=== PATIENT | female | born 1950 | race Caucasian/White ===

== ENCOUNTER → 2016-07-21 | Outpatient (CLI) | payer MEDICARE, MEDICAID | END | disposition home or self-care (01) | LOC: MAMMO 12:09 | DX: Z12.31 Encounter for screening mammogram for malignant neoplasm of breast (principal) ==

== ENCOUNTER → 2017-04-09 | Day surgery (SDC) | payer MEDICARE, MEDICAID ==
[~2017-04-09] VITALS: Ht 154.9 cm; Wt 83.9 kg
[~2017-04-09] MED LIST: 'CLONIDINE0.1 MG PO; ASPIRIN81 M1 PO; COZAAR100 MG PO; LANTUS SOL100 UNIT/1 SQ; Lopressor25 MG PO; METFORMIN1000 MG PO; NORVASC5 MG PO
--- NOTE | ~2017-04-09 | PROC NOTE ---
[place], [place] PROCEDURE NOTE NAME: JOANN CASEY UNIT #: [id number] ROOM: DOCTOR: JUAN LIUS OSORIO MD BIRTHDATE: [birth year] DOS: 04/09/2017 PREOPERATIVE DIAGNOSES: History of diarrhea and intermittent lower gastrointestinal bleed. POSTOPERATIVE DIAGNOSIS: Rectal polyps x 1 (10 cm). PROCEDURE: Colonoscopy with polypectomy. SURGEON: Juan Luis Osorio MD GASTROINTESTINAL TECHNICIAN: [id number]. ANESTHESIA: MAC. INDICATIONS: This is a 66-year-old lady with a history of chronic diarrhea and intermittent lower GI bleeding, who is here for the above-mentioned procedure. The procedure and its complications were explained to the patient in detail preoperatively. Complications that were discussed included, but were not limited to bleeding, missed lesions and colon perforation. She agreed to proceed. DESCRIPTION OF PROCEDURE: After identifying the patient, the patient was brought to the operating suite and laid in the left lateral position. After IV sedation was administered, a timeout procedure was called and a digital rectal exam was performed. This was within normal limits. An adult colonoscope was now introduced into the anal canal and advanced sequentially into the rectum, sigmoid colon, descending colon, transverse colon and ascending colon up to the cecum. On reaching the cecum, the scope was withdrawn. Total withdrawal time was approximately 7 minutes. At approximately 10 cm from the anal verge ____ there was found to be a single polyp, which was removed piecemeal with the help of a biopsy forceps and sent for histopathological diagnosis. After hemostasis was confirmed, the scope was withdrawn and the patient was taken to the recovery room in stable fashion. There were no complications. Dr. Juan Luis Osorio, the attending surgeon, was present throughout the operating case. Based on these findings, the patient is recommended another colonoscopy in 3 years. These findings will be discussed with the patient in the postoperative recovery room. [place], [place] PROCEDURE NOTE NAME: JOANN CASEY UNIT #: [id number] ROOM: DOCTOR: JUAN LUIS OSORIO MD BIRTHDATE: [birth year] Juan Luis Osorio MD CM:PROCNOTE:PROCEDURE NOTE [id number] JUAN LUIS OSORIO MD
[2017-04-09 08:13] VITALS: BP 205/76
[2017-04-09 09:28] VITALS: BP 133/55
[2017-04-09 09:43] VITALS: BP 145/68
[2017-04-09 09:58] VITALS: BP 161/64
== END | disposition home or self-care (01) ==
LOC: SDC 04-07 12:30
DX: D12.8 Benign neoplasm of rectum (principal); K52.9 Noninfective gastroenteritis and colitis, unspecified; I10 Essential (primary) hypertension; E11.9 Type 2 diabetes mellitus without complications; I50.9 Heart failure, unspecified; Z90.710 Acquired absence of both cervix and uterus; Z98.51 Tubal ligation status; Z98.890 Other specified postprocedural states; Z88.8 Allergy status to other drugs, medicaments and biological substances; Z83.3 Family history of diabetes mellitus

== ENCOUNTER 2017-08-21 13:04 | Inpatient (IN) | payer MEDICARE, MEDICAID ==
[~2017-08-21] VITALS: Ht 154.9 cm; Wt 81.8 kg
--- NOTE | ~2017-08-21 | PR ---
[place], [place] PROGRESS NOTE NAME: JOANN CASEY UNIT #: [id number] ROOM: 519 DOCTOR: TIANA RODAS MD BIRTHDATE: [birth year] DOS: 08/23/2017 SUBJECTIVE: The patient was seen in the Cardiology Department today, 08/23/2017, just prior to her stress test. She is a 67-year-old woman with multiple risk factors for coronary disease including diabetes, hypertension, hyperlipidemia, who is intolerant of STATINS. She presented to the hospital on this occasion with left wrist and arm pain, radiating into her neck and shoulder and then into her chest. The pain was described as an atypical stabbing and burning discomfort. However, given her risk factors, it was felt that coronary artery disease should be evaluated. Thus far, her troponin levels are normal. PHYSICAL EXAMINATION: VITAL SIGNS: Today her pulse is 76 and regular, blood pressure is 157/67. She is afebrile. She has an oxygen saturation on room air of 96% and a body mass index of 34.1. HEENT: Normocephalic and atraumatic. Extraocular muscles are intact. Sclerae are clear. Pupils equal, round and react to light. The oral mucosa is moist. Tongue is midline. NECK: Supple. She has no jugular distention. Carotids are full without bruits. LUNGS: Respirations are unlabored. Her chest is clear to auscultation and percussion. She has no presacral edema or chest wall tenderness. HEART: Has a regular rhythm with a soft S4 gallop. ABDOMEN: Obese, but otherwise benign. EXTREMITIES: Showed no edema. LABORATORY DATA: Her resting electrocardiogram showed sinus rhythm with nonspecific ST changes and poor precordial R-wave progression. IMPRESSION: 1. Atypical chest discomfort. 2. Multiple coronary risk factors including hypertension, diabetes, hyperlipidemia and a family history of heart disease. PLAN: We will proceed with a pharmacologic stress test. Further recommendations will depend upon the results of the stress test. We thank the hospitalist physicians for asking our advice regarding her care. [place], [place] PROGRESS NOTE NAME: JOANN CASEY UNIT #: [id number] ROOM: 519 DOCTOR: TIANA RODAS MD BIRTHDATE: [birth year] TIANA RODAS MD CM:PNTRANS [id number] TIANA RODAS MD 08/23/17 1128 [id number]
[2017-08-21 13:08] VITALS: BP 148/68
[2017-08-21] MEDS ORDERED: HYZAAR 100-12.1 EACH PO (13:28)
[2017-08-21 13:29] LABS: BASO % 0.4 % (0.0-1.0); EOS # 0.3 10*3/uL (0.0-0.4); EOS % 2.5 % (1.0-4.0); HEMATOCRIT 41.5 % (37.0-47.0); HEMOGLOBIN 14.8 g/dl (12.0-16.0); LYMPH # 2.7 10*3/uL (1.3-4.4); LYMPH % 24.6 % (27.0-41.0); MEAN CELL VOLUME 84.3 fl (81.0-99.0); MEAN CORPUSCULAR HGB 30.1 pg (27.0-31.0); MEAN CORPUSCULAR HGB CONC 35.7 g/dl (33.0-37.0); MEAN PLATELET VOLUME 9.6 fl (9.6-12.3); MONO % 9.1 % (3.0-9.0); NEUT % 63.1 % (47.0-73.0); PLATELET COUNT AUTOMATED 301 10*3/uL (130-400); RED BLOOD COUNT 4.92 10*6/uL (4.10-5.10); RED CELL DISTRI WIDTH 12.7 % (0-14.5); WHITE BLOOD COUNT 11.2 10*3/uL (4.8-10.8)
[2017-08-21 13:39] LABS: ALBUMIN 4.2 gm/dl (3.1-4.5); ALKALINE PHOSPHATASE 80 U/L (45-117); BUN 12 mg/dl (7-24); CHLORIDE 95 mmol/L (98-107); CREATININE 0.91 mg/dL (0.55-1.02); POTASSIUM 4.3 mmol/L (3.5-5.1); SGOT/AST 26 IU/L (3-35); SGPT/ALT 41 U/L (12-78); SODIUM 130 mmol/L (136-145); TOTAL PROTEIN 8.2 gm/dL (6.4-8.2)
[2017-08-21 13:40] LABS: TROPONIN I < 0.015 ng/ml (<0.045)
[2017-08-21 13:48] LABS: ACT PARTIAL THROMBO TIME 25.5 SECONDS (20.8-31.5)
[2017-08-21 13:53] VITALS: BP 151/62
[2017-08-21] MEDS ORDERED: LOSARTAN-HCTZ1 EAC1 PO ×2 (14:37→14:53)
[2017-08-21] MEDS ORDERED: COZAAR100 MG PO (14:39)
[2017-08-21 14:40] VITALS: BP 162/64
[2017-08-21] MEDS ORDERED: CLONIDINE HCL0.1 M1 PO (14:40)
[2017-08-21] MEDS ORDERED: VITAMIN D50000 UNIT PO (14:50)
[2017-08-21] MEDS ORDERED: VITAMIN D-32000 UNI1 PO (14:51)
[2017-08-21] MEDS ORDERED: LEVEMIR100 UNIT/1 SC (14:52)
[2017-08-21] MEDS ORDERED: NORVASC10 MG PO (15:27)
[2017-08-21] MEDS ORDERED: METFORMIN1000 MG PO (15:27)
[2017-08-21] MEDS ORDERED: LANTUS SOL100 UNIT/1 SC (15:29)
[2017-08-21 20:00] VITALS: BP 170/80
[2017-08-22] VITALS: BP 167/77
[2017-08-22 07:36] LABS: CHLORIDE 92 mmol/L (98-107); POTASSIUM 3.4 mmol/L (3.5-5.1); SODIUM 129 mmol/L (136-145)
[2017-08-22 07:44] VITALS: BP 162/75
[2017-08-22 07:44] LABS: BASO % 0.3 % (0.0-1.0); EOS # 0.3 10*3/uL (0.0-0.4); HEMATOCRIT 39.6 % (37.0-47.0); HEMOGLOBIN 14.4 g/dl (12.0-16.0); LYMPH # 2.8 10*3/uL (1.3-4.4); LYMPH % 26.5 % (27.0-41.0); MEAN CELL VOLUME 84.4 fl (81.0-99.0); MEAN CORPUSCULAR HGB 30.7 pg (27.0-31.0); MEAN CORPUSCULAR HGB CONC 36.4 g/dl (33.0-37.0); MEAN PLATELET VOLUME 9.9 fl (9.6-12.3); MONO # 1.1 10*3/uL (0.1-1.0); MONO % 10.2 % (3.0-9.0); NEUT # 6.2 10*3/uL (2.3-7.9); NEUT % 59.8 % (47.0-73.0); PLATELET COUNT AUTOMATED 277 10*3/uL (130-400); RED BLOOD COUNT 4.69 10*6/uL (4.10-5.10); RED CELL DISTRI WIDTH 12.7 % (0-14.5); WHITE BLOOD COUNT 10.4 10*3/uL (4.8-10.8)
[2017-08-22 07:54] LABS: BUN 9 mg/dl (7-24); CHOLESTEROL 229 mg/dL (<200); CREATININE 0.67 mg/dL (0.55-1.02); HDL CHOLESTEROL 44 mg/dl (40-60); LDL CHOLESTEROL 164 mg/dL (9-159); PHOSPHOROUS 4.1 mg/dL (2.5-4.9); TRIGLYCERIDES 103 mg/dl (<150); VLDL CHOLESTEROL 21 mg/dL (6-40)
[2017-08-22 09:19] LABS: VITAMIN D, 25-HYDROXY 17.2 ng/mL (30-100)
[2017-08-22 12:00] VITALS: BP 142/68
[2017-08-22 16:00] VITALS: BP 153/66
[2017-08-22 20:00] VITALS: BP 169/70
[2017-08-23] VITALS: BP 161/54
[2017-08-23 04:00] VITALS: BP 178/90
[2017-08-23 07:10] LABS: BASO % 0.3 % (0.0-1.0); EOS # 0.3 10*3/uL (0.0-0.4); EOS % 2.7 % (1.0-4.0); HEMATOCRIT 42.6 % (37.0-47.0); HEMOGLOBIN 14.9 g/dl (12.0-16.0); LYMPH # 3.2 10*3/uL (1.3-4.4); LYMPH % 27.4 % (27.0-41.0); MEAN CELL VOLUME 84.4 fl (81.0-99.0); MEAN CORPUSCULAR HGB 29.5 pg (27.0-31.0); MEAN PLATELET VOLUME 9.9 fl (9.6-12.3); MONO # 1.2 10*3/uL (0.1-1.0); MONO % 10.2 % (3.0-9.0); NEUT # 6.8 10*3/uL (2.3-7.9); NEUT % 59.1 % (47.0-73.0); PLATELET COUNT AUTOMATED 325 10*3/uL (130-400); RED BLOOD COUNT 5.05 10*6/uL (4.10-5.10); RED CELL DISTRI WIDTH 12.6 % (0-14.5); WHITE BLOOD COUNT 11.5 10*3/uL (4.8-10.8)
[2017-08-23 07:35] LABS: BUN 11 mg/dl (7-24); CHLORIDE 93 mmol/L (98-107); SODIUM 129 mmol/L (136-145)
[2017-08-23 08:00] VITALS: BP 157/67
[2017-08-23 12:01] VITALS: BP 168/71
== END 2017-08-23 17:29 | disposition home or self-care (01) | DRG 313 ==
LOC: ED 13:04 → EDHOLD 13:47 → 5E 13:47
PROVIDERS: Internal Medicine; Student in an Organized Health Care Education/Training Program
PROC: 3E073KZ Introduction of Other Diagnostic Substance into Coronary Artery, Percutaneous Approach (ICD-10-PCS; principal; 2017-08-23)
PROC: 4A02XM4 Measurement of Cardiac Total Activity, External Approach (ICD-10-PCS; principal; 2017-08-23)
DX: R07.89 Other chest pain (principal); E11.65 Type 2 diabetes mellitus with hyperglycemia; E87.8 Other disorders of electrolyte and fluid balance, not elsewhere classified; E87.1 Hypo-osmolality and hyponatremia; I10 Essential (primary) hypertension; R00.1 Bradycardia, unspecified; D72.810 Lymphocytopenia; E78.5 Hyperlipidemia, unspecified; E66.9 Obesity, unspecified; E55.9 Vitamin D deficiency, unspecified; D72.821 Monocytosis (symptomatic); Z79.4 Long term (current) use of insulin; Z87.891 Personal history of nicotine dependence; Z88.5 Allergy status to narcotic agent; Z88.8 Allergy status to other drugs, medicaments and biological substances; Z79.899 Other long term (current) drug therapy; Z79.82 Long term (current) use of aspirin; Z90.710 Acquired absence of both cervix and uterus; Z80.1 Family history of malignant neoplasm of trachea, bronchus and lung; Z79.84 Long term (current) use of oral hypoglycemic drugs; Z82.49 Family history of ischemic heart disease and other diseases of the circulatory system; Z68.37 Body mass index [BMI] 37.0-37.9, adult

== ENCOUNTER → 2017-11-23 | Outpatient (CLI) | payer MEDICARE, MEDICAID ==
[~2017-11-23] MED LIST changes: +CLONIDINE HCL0.1 M1 PO; +HYZAAR 100-12.1 EACH PO; +LANTUS SOL100 UNIT/1 SC; +LEVEMIR100 UNIT/1 SC; +LOSARTAN-HCTZ1 EAC1 PO; +NORVASC10 MG PO; +VITAMIN D-32000 UNI1 PO; +VITAMIN D50000 UNIT PO
== END | disposition home or self-care (01) ==
LOC: RAD 18:19
DX: M16.11 Unilateral primary osteoarthritis, right hip (principal); M85.88 Other specified disorders of bone density and structure, other site; M51.37 Other intervertebral disc degeneration, lumbosacral region

== ENCOUNTER → 2018-05-09 | Outpatient (CLI) | payer MEDICARE, MEDICAID | END | disposition home or self-care (01) | LOC: MAMMO 05-06 13:00 | DX: Z12.31 Encounter for screening mammogram for malignant neoplasm of breast (principal) ==

== ENCOUNTER → 2018-08-04 | Outpatient (CLI) | payer MEDICARE, MEDICAID | END | disposition home or self-care (01) | LOC: RAD 13:30 | DX: Z13.820 Encounter for screening for osteoporosis (principal); M81.0 Age-related osteoporosis without current pathological fracture; E11.9 Type 2 diabetes mellitus without complications; Z78.0 Asymptomatic menopausal state; Z90.710 Acquired absence of both cervix and uterus ==

== ENCOUNTER → 2019-09-19 | Outpatient (CLI) | payer MEDICARE, MEDICAID | END | disposition home or self-care (01) | LOC: MAMMO 08-17 14:30 | DX: Z12.31 Encounter for screening mammogram for malignant neoplasm of breast (principal) ==

== ENCOUNTER → 2019-12-21 | Outpatient (CLI) | payer MEDICARE, MEDICAID | END | disposition home or self-care (01) | LOC: RAD 13:08 | DX: M47.816 Spondylosis without myelopathy or radiculopathy, lumbar region (principal); M47.817 Spondylosis without myelopathy or radiculopathy, lumbosacral region; M43.16 Spondylolisthesis, lumbar region; M41.86 Other forms of scoliosis, lumbar region ==

== ENCOUNTER → 2020-11-08 | Outpatient (CLI) | payer MEDICARE, MEDICAID ==
[2020-11-08 10:34] LABS: HEMATOCRIT 37.9 % (37.0-47.0); MEAN CELL VOLUME 83.7 fl (81.0-99.0); MEAN CORPUSCULAR HGB 27.8 pg (27.0-31.0); MEAN CORPUSCULAR HGB CONC 33.2 g/dl (33.0-37.0); MEAN PLATELET VOLUME 8.9 fl (9.6-12.3); RED BLOOD COUNT 4.53 10*6/uL (4.10-5.10); RED CELL DISTRI WIDTH 14.2 % (0-14.5); WHITE BLOOD COUNT 10.1 10*3/uL (4.8-10.8)
[2020-11-08 11:04] LABS: ALBUMIN 3.8 gm/dl (3.1-4.5); ALKALINE PHOSPHATASE 87 U/L (45-117); BUN 11 mg/dl (7-24); CHLORIDE 97 mmol/L (98-107); CHOLESTEROL 229 mg/dL (<200); CREATININE 0.78 mg/dL (0.55-1.02); HDL CHOLESTEROL 47 mg/dl (40-60); LDL CHOLESTEROL 163 mg/dL (9-159); POTASSIUM 4.2 mmol/L (3.5-5.1); SGOT/AST 18 IU/L (3-35); SGPT/ALT 30 U/L (12-78); SODIUM 133 mmol/L (136-145); TOTAL PROTEIN 7.8 gm/dL (6.4-8.2); TRIGLYCERIDES 95 mg/dl (<150); VLDL CHOLESTEROL 19 mg/dL (6-40)
== END | disposition home or self-care (01) ==
LOC: LAB 10:16
PROVIDERS: ATTEND Physician Assistant
DX: E11.9 Type 2 diabetes mellitus without complications (principal)

== ENCOUNTER → 2020-12-31 | Outpatient (CLI) | payer MEDICARE, MEDICAID | END | disposition home or self-care (01) | LOC: MAMMO 12-10 15:30 | PROVIDERS: ATTEND Physician Assistant | DX: Z12.31 Encounter for screening mammogram for malignant neoplasm of breast (principal); N64.89 Other specified disorders of breast ==